=== PATIENT | male | born 1995 | race African-American/Black ===

== ENCOUNTER 2022-10-03 21:25 | Emergency (ER) | payer BC ==
[2022-10-03] MEDS ORDERED: Bupivacaine PF 0.5% 30 ML VIAL ONE (22:18)
== END 2022-10-03 22:29 | disposition home or self-care (01) ==
LOC: MADERS 21:25
DX: K08.89 Other specified disorders of teeth and supporting structures (principal); F17.290 Nicotine dependence, other tobacco product, uncomplicated
CPT/HCPCS: 99282; S0020